=== PATIENT | female | born 1975 | race African-American/Black ===

== ENCOUNTER 2019-02-05 14:25 | Emergency (ER) | payer OTHER ==
[~2019-02-05] VITALS: Ht 154.9 cm; Wt 77.1 kg
[2019-02-05] MEDS ORDERED: PROMETH-CODEIN 65 ML PO (19:01)
[2019-02-05] MEDS ORDERED: MUCINEX DM ER1 EAC1 PO (19:01)
[2019-02-05] MEDS ORDERED: ZITHROMAX500 MG PO (19:01)
[2019-02-05] MEDS ORDERED: MEDROLPACK PO (19:01)
[2019-02-05] MEDS ORDERED: BUDESONIDE0.5 MG/2 M IH (19:01)
[2019-02-05] MEDS ORDERED: IPRAT-ALBUT 0.5-3 ML IH (19:01)
== END 2019-02-05 20:01 ==
LOC: ER 14:25
DX: J06.9 Acute upper respiratory infection, unspecified (principal); A49.3 Mycoplasma infection, unspecified site

== ENCOUNTER 2020-02-15 15:11 | Emergency (ER) | payer OTHER ==
[~2020-02-15] VITALS: Ht 154.9 cm; Wt 77.1 kg
[~2020-02-15 15:11] MED LIST: BUDESONIDE0.5 MG/2 M IH; IPRAT-ALBUT 0.5-3 ML IH; MEDROLPACK PO; MUCINEX DM ER1 EAC1 PO; PROMETH-CODEIN 65 ML PO; ZITHROMAX500 MG PO
[2020-02-15] MEDS ORDERED: PROAIR HFA8.5 GM IH (15:40)
[2020-02-15] MEDS ORDERED: PERCOCET 5-3251 EACH PO (20:51)
[2020-02-15] MEDS ORDERED: ACETAMINOPHEN500 M1 PO (20:51)
== END 2020-02-15 21:05 | disposition home or self-care (01) ==
LOC: ER 15:11
DX: S30.0XXA Contusion of lower back and pelvis, initial encounter (principal); S80.01XA Contusion of right knee, initial encounter; S90.01XA Contusion of right ankle, initial encounter; W10.8XXA Fall (on) (from) other stairs and steps, initial encounter; Y93.89 Activity, other specified; Y92.098 Other place in other non-institutional residence as the place of occurrence of the external cause; Y99.8 Other external cause status

== ENCOUNTER 2021-01-27 09:21 | Emergency (ER) | payer OTHER ==
[~2021-01-27] VITALS: Ht 154.9 cm; Wt 88.5 kg
[~2021-01-27 09:21] MED LIST changes: +ACETAMINOPHEN500 M1 PO; +PERCOCET 5-3251 EACH PO; +PROAIR HFA8.5 GM IH
[2021-01-27] MEDS ORDERED: ZITHROMAX500 MG PO (13:12)
== END 2021-01-27 13:20 | disposition home or self-care (01) ==
LOC: ER 09:21
DX: B34.9 Viral infection, unspecified (principal); Z03.818 Encounter for observation for suspected exposure to other biological agents ruled out

== ENCOUNTER 2021-05-29 18:57 | Emergency (ER) | payer OTHER ==
[~2021-05-29] VITALS: Ht 154.9 cm; Wt 90.7 kg
[2021-05-29] MEDS ORDERED: MUCINEX DM ER1 EAC1 PO (23:17)
[2021-05-29] MEDS ORDERED: PROMETH-CODEIN 65 ML PO (23:17)
[2021-05-29] MEDS ORDERED: MEDROLPACK PO (23:17)
[2021-05-29] MEDS ORDERED: SYMBICORT 16010.2 GM IH (23:17)
== END 2021-05-29 23:47 ==
LOC: ER 18:57
DX: U07.1 COVID-19 (principal)

== ENCOUNTER 2022-01-10 13:20 | Emergency (ER) | payer OTHER ==
[~2022-01-10] VITALS: Ht 154.9 cm; Wt 90.7 kg
[~2022-01-10 13:20] MED LIST changes: +SYMBICORT 16010.2 GM IH
== END 2022-01-10 15:46 | disposition home or self-care (01) ==
LOC: ER 13:20
DX: U07.1 COVID-19 (principal); Z88.8 Allergy status to other drugs, medicaments and biological substances

== ENCOUNTER 2022-07-07 20:57 | Emergency (ER) | payer OTHER ==
[~2022-07-07] VITALS: Ht 154.9 cm; Wt 90.7 kg
== END 2022-07-08 01:23 | disposition home or self-care (01) ==
LOC: ER 20:57
DX: J45.901 Unspecified asthma with (acute) exacerbation (principal)

== ENCOUNTER 2022-09-10 17:11 | Emergency (ER) | payer OTHER ==
[~2022-09-10] VITALS: Ht 154.9 cm; Wt 90.7 kg
== END 2022-09-10 20:00 | disposition home or self-care (01) ==
LOC: ER 17:11
DX: M54.31 Sciatica, right side (principal); R05.8 Other specified cough; Z88.6 Allergy status to analgesic agent

== ENCOUNTER 2024-12-26 19:14 | Emergency (ER) | payer OTHER ==
[~2024-12-26] VITALS: Ht 154.9 cm; Wt 90.7 kg
[2024-12-26] MEDS ORDERED: ONDANSETRON HCL 2 MG/ML VIAL IV STA (22:58)
[2024-12-26] MEDS ORDERED: FAMOtidine 10 MG/ML (4ML VIAL) IV PUSH STA (22:58)
[2024-12-26] MEDS ORDERED: HYOSCYAMINE SULFATE 0.125 MG TAB.SUBL SL ONE (23:00)
[2024-12-26] MEDS ORDERED: HYOSCYAMINE SULFATE 0.125 MG TAB.SUBL ONE (23:13)
[2024-12-26] MEDS ORDERED: ONDANSETRON HCL 2 MG/ML VIAL ONE (23:13)
[2024-12-26] MEDS ORDERED: FAMOTIDINE/PF 20 MG/2 ML VIAL ONE (23:13)
[2024-12-26 23:39] LABS: BASO % 0.4 % (0.1-1.2); EOS # 0.20 (0.04-0.54); EOS % 2.5 % (0.7-7.0); LYMPH # 4.26 (1.18-3.74); LYMPH % 53.8 % (19.3-53.1); MEAN PLATELET VOLUME 9.20 fl (9.4-12.4); MONO # 0.55 (0.24-0.82); MONO % 6.9 % (4.7-12.5); NEUT # 2.86 (1.56-6.13); NEUT % 36.1 % (34.0-71.1); RED CELL DISTRIBUTION WIDTH 13.4 % (11.6-14.4)
[2024-12-27 00:04] LABS: BUN CREA RATIO 18.0 (7.0-25.0); CREATININE SERUM 0.82 mg/dL (0.55-1.02); GFR 74.41; GLUCOSE FASTING 86.0 mg/dL (65-100); OSMOLALITY SERUM 281.0 MOSM/KG (275-295)
== END 2024-12-27 01:40 | disposition home or self-care (01) ==
LOC: ER 20:44
DX: R10.13 Epigastric pain (principal); Z88.8 Allergy status to other drugs, medicaments and biological substances